=== PATIENT | female | born 1940 | race Caucasian/White ===

== ENCOUNTER 2018-12-17 05:57 | Day surgery (SDC) | payer MEDICARE, OTHER ==
[2018-12-12 10:41] VITALS: BMI 26.2
[2018-12-17] MEDS ORDERED: ALPRAZolam 0.25 MG TAB PO PRN (06:13)
[2018-12-17] MEDS ORDERED: ASPIRIN 325 MG TAB PO STA (06:13)
[2018-12-17] MEDS ORDERED: ATORVASTATIN 80 MG TAB PO STA (06:13)
[2018-12-17] MEDS ORDERED: NITROGLYCERIN SL TABS 0.4 MG TAB SUBLINGUAL PRN (06:13)
[2018-12-17] MEDS ORDERED: SODIUM CHLORIDE 0.9% 1,000 ML in EMPTY BAG 1 BAG IV ONE (06:13)
[2018-12-17] MEDS ORDERED: ALPRAZolam 0.5 MG TAB PO PRN (06:13)
[2018-12-17 06:43] VITALS: TEMP 97.7
[2018-12-17] MEDS ORDERED: SODIUM CHLORIDE 0.9% 1,000 ML IV ONE (06:44)
[2018-12-17 06:54] LABS: Prothrombin Time 11.1 sec (9.0-12.0)
[2018-12-17] MEDS ORDERED: fentaNYL (PF) 50 MCG/ML 2 ML AMP ONE (07:19)
[2018-12-17] MEDS ORDERED: LIDOCAINE 1% INJ 10MG/ML (20 ML MDV) ONE (07:25)
[2018-12-17] MEDS ORDERED: BENZOCAINE SPRAY 1 CAN MUCOUS MEM ONE (07:45)
[2018-12-17] MEDS ORDERED: MIDAZOLAM PF (FBP) 2 MG/2 ML VIAL IV ONE ×2 (07:54→08:30)
[2018-12-17] MEDS ORDERED: IV FLUID CONTINUATION 650 ML IV ONE (08:14)
[2018-12-17] MEDS ORDERED: LIDOCAINE 1% INJ 10MG/ML (20 ML MDV) SQ ONE (08:29)
--- NOTE | 2018-12-17 08:45 | ECHOT ---
TRANSESOPHAGEAL ECHOCARDIOGRAM DATE OF SERVICE: December 17, 2018 PERFORMING PHYSICIAN: Levi Srinivasan MD. PROCEDURE PERFORMED: Transesophageal echocardiogram. INDICATION: This is a pleasant 78-year-old female patient with history of aortic valve disease, where she underwent aortic valve replacement in 2014 using bioprosthetic valve as well as multiple comorbid conditions recently underwent transthoracic echocardiogram at [facility] and that revealed evidence of severe aortic insufficiency with moderate mitral regurgitation as well as severe tricuspid regurgitation. Because of that, a KARLI and heart catheterization were advised. COMPLICATION: None. LEVEL OF SEDATION: Moderate with sedation length of 15 minutes. PROCEDURE DESCRIPTION: After obtaining an informed consent, explaining the procedure, benefits, risks, complications and alternatives, the patient was brought to the transesophageal echocardiogram suite. A pulse oximetry and heart rate monitors were attached to the patient prior to the procedure. The patient's throat was sprayed using lidocaine locally. Following that, the patient was turned into left lateral position. A bite guard was placed and the patient was then sedated with the above doses of Versed and fentanyl in divided doses. Following that, the transesophageal echocardiogram probe was advanced through the bite guard into the mid esophagus where 2-D echocardiogram images as well as color Doppler images of various cardiac structures were obtained. We evaluated the interatrial septum using 2-D echocardiogram, color Doppler, and contrast study. The procedure was completed. There were no complications. FINDINGS: The left ventricle appeared to be dilated by visual estimation. The ejection fraction appeared to be in the range of 50% to 55%. The right ventricle appeared to be of normal size and function. The left atrium appeared to be severely dilated. The left atrial appendage was not well visualized. The interatrial septum appeared to be intact. The aortic valve is bioprosthetic valve with evidence of severe aortic insufficiency seen. The mitral valve seems to be thickened with evidence of moderate mitral insufficiency. Tricuspid valve was not well visualized. CONCLUSION: 1. Dilated left ventricle with a normal function. Ejection fraction appeared to be in the range of 50% to 55%. 2. Normal right ventricular dimension and systolic function. 3. Severe left atrial dilatation. 4. Bioprosthetic aortic valve with evidence of severe aortic insufficiency by color- flow Doppler as well as by reversal flow in the descending thoracic aorta. 5. Thickened mitral valve leaflets with evidence of moderate mitral insufficiency. 6. Poorly visualized tricuspid valve and pulmonic valve. 7. Mildly dilated aortic root. 8. No evidence of pericardial effusion. MMODL / IJN: [id number] /
[2018-12-17] MEDS ORDERED: IOPAMIDOL-370 50ML BTL INJ ONE (08:52)
[2018-12-17] MEDS ORDERED: IOPAMIDOL-370 125ML BTL INJ ONE (08:53)
[2018-12-17] MEDS ORDERED: fentaNYL (PF) 50 MCG/ML 2 ML AMP IV ONE (09:06)
[2018-12-17] MEDS ORDERED: RX INFO: IV CONTRAST WAS GIVEN 1 EACH MISC MISCELLANE PRN (09:12)
[2018-12-17] MEDS ORDERED: SODIUM CHLORIDE 0.9% 1,000 ML IV SCH (09:15)
--- NOTE | 2018-12-17 09:42 | CC ---
CARDIAC CATHETERIZATION REPORT DATE OF SERVICE: 12/17/2018 PERFORMING PHYSICIAN: Levi Srinivasan MD, [employer]. PROCEDURE PERFORMED: 1. Right heart catheterization. 2. Selective right and left coronary angiogram. 3. Aortic root angiogram. INDICATION: This is a 78-year-old female patient with history of aortic valve replacement using bioprosthetic valve in 2013. Recently was diagnosed with severe aortic insufficiency. She underwent transesophageal echocardiogram and was brought today to undergo a heart catheterization. APPROACH: Right common femoral artery. COMPLICATION: None. LEVEL OF SEDATION: Moderate with sedation length of 31 minutes. PROCEDURE DESCRIPTION: After obtaining an informed consent, the patient was brought to the cardiac seed analysis laboratory assistant. The right common femoral artery was cannulated using micropuncture technique, the micropuncture wire passed easily, then I placed a 6-Moroccan sheath in the right common femoral artery. I did also cannulate the right common femoral vein using the same technique. Then I placed an 8-Moroc[place] sheath in the vein. I did right heart catheterization using 6-Moroccan swan catheter. Selective right and left coronary angiogram performed using JR3.5 and JL3.5. The aortic root angiogram was performed using a pigtail catheter. The procedure was completed without any complication. HEMODYNAMICS: The pulmonary artery systolic pressure was not obtained because I had a hard time reaching the pulmonary artery. RV pressures were as follows, systolic is 38 and end-diastolic of 6 mmHg. RA pressure was 4 mm Hg. SELECTIVE CORONARY ANGIOGRAM: 1. The right coronary artery is a large caliber vessel and is a dominant vessel and appeared to be angiographically normal. 2. The left main is angiographically normal, it bifurcates into the LEFT circumflex and left anterior descending artery. 3. The left circumflex is a large caliber vessel. It is a nondominant vessel and appeared to be angiographically normal. 4. The LAD is angiographically normal as well. AORTIC ROOT ANGIOGRAM: The aortic root angiogram was performed in the [place] projection and using a power injection. There was 4+ aortic insufficiency seen. CONCLUSION: 1. Normal right heart pressures. 2. Normal coronary angiogram. 3. 4+ aortic insufficiency. 4. Dilated ascending aorta. POSTPROCEDURE MANAGEMENT: The patient will be referred to see a cardiothoracic surgeon for evaluation of either redo aortic valve replacement or transcutaneous aortic valve replacement with valve in valve. MMODL / IJN: [id number] /
[2018-12-17 16:26] VITALS: RESP 16
[2018-12-17 16:53] VITALS: BP 134/64; PULSE 54
== END 2018-12-17 14:33 | disposition home or self-care (01) ==
LOC: CATHCVL 05:57
PROVIDERS: ATTEND Internal Medicine Interventional Cardiology
DX: I08.0 Rheumatic disorders of both mitral and aortic valves (principal); I48.0 Paroxysmal atrial fibrillation; I77.810 Thoracic aortic ectasia; I10 Essential (primary) hypertension; I73.9 Peripheral vascular disease, unspecified; E78.5 Hyperlipidemia, unspecified; Z95.2 Presence of prosthetic heart valve; Z79.01 Long term (current) use of anticoagulants; Z79.899 Other long term (current) drug therapy; Z91.018 Allergy to other foods
CPT/HCPCS: 93312; 93320; 93325; 93460; 93567; 85610; C1760 ×2; C1769 ×4; C1894 ×2; J2001; J3010; Q9967 ×2; J2250